=== PATIENT | female | born 1930 | race Two or more races ===

== ENCOUNTER 2017-09-19 18:44 | Inpatient (IN) | payer OTHER, MEDICAID ==
[~2017-09-19] VITALS: Ht 152.4 cm; Wt 52.8 kg
[2017-09-19 20:55] LABS: Basophils # (auto) 0.2 uL; Basophils % (auto) 1.1 % (0.0-2.0); Eosinophils # (auto) 0.2 uL; Eosinophils % (auto) 1.3 % (0.0-7.0); Hematocrit 36.5 % (36.0-46.0); Hemoglobin 11.7 g/dL (12.2-16.2); Lymphocytes # (auto) 1.2 uL; Mean Corpuscular Hemoglobin 28.1 pg (28.0-32.0); Mean Corpuscular Volume 87.8 fL (80.0-100.0); Monocytes % (auto) 6.3 % (0.0-12.0); Neutrophils % (auto) 84.3 % (37.0-80.0); Nucleated Red Blood Cells % 0.1 %; Platelet Count (auto) 369 10^3/uL (140-450); Red Blood Cells 4.16 10^6/uL (4.0-5.20); Red Cell Distribution Width 16.4 % (11.8-14.3); White Blood Cell 16.6 10^3/uL (4.4-10.8)
[2017-09-19 21:10] LABS: INR 1.04 (0.9-1.15); Partial Thromboplastin Time 24.3 sec (22.64-33.71); Prothrombin Time 11.3 sec (9.37-12.3)
[2017-09-19 21:11] LABS: Albumin 3.7 g/dL (3.4-5.0); BUN/Creatinine Ratio 30.5; Calcium 8.4 mg/dL (8.5-10.1)
[2017-09-19 21:12] LABS: Magnesium 1.9 mg/dL (1.6-2.6)
[2017-09-19 21:14] LABS: Bilirubin, Total 0.6 mg/dL (0.2-1.0); Total Protein 7.9 g/dL (6.4-8.2)
[2017-09-19 21:22] LABS: Urine Bacteria FEW /hpf (None Seen); Urine Blood Negative /uL (Negative); Urine Hyaline Cast FEW /lpf (0 - 2); Urine Specific Gravity 1.011 (1.001-1.035); Urine WBC 2 /hpf (0 - 5)
[2017-09-19] MEDS ORDERED: ONDANSETRON HCL 4 MG/2 ML VIAL IV ONE (21:30)
[2017-09-19] MEDS ORDERED: MORPHINE SULFATE 4 MG/ML SYR/VIAL IV ONE (21:30)
[2017-09-19] MEDS ORDERED: cloNIDine HCL 0.1 MG TAB PO ONE (21:30)
[2017-09-19] MEDS ORDERED: SODIUM CHLORIDE 0.9% 1,000 ML IV ONE (21:30)
[2017-09-19] MEDS ORDERED: cloNIDine HCL 0.1 MG TAB PO PRN (21:45)
[2017-09-19] MEDS ORDERED: DEXTROSE (50%) 50ML SYRG IV PRN (21:45)
[2017-09-19] MEDS ORDERED: ONDANSETRON HCL 4 MG/2 ML VIAL IV PRN (21:45)
[2017-09-19] MEDS ORDERED: ACETAMINOPHEN 325 MG TAB PO PRN (21:45)
[2017-09-19] MEDS ORDERED: MORPHINE SULFATE 4 MG/ML SYR/VIAL IV PRN ×2 (21:45)
[2017-09-19] MEDS ORDERED: HYDROcodone-ACET 5/325MG TAB PO PRN (21:45)
[2017-09-19] MEDS ORDERED: DOCUSATE SOD 100 MG CAP PO PRN (21:45)
[2017-09-19] MEDS ORDERED: LEVOFLOXACIN 500MG 100 ML IV ONE (21:45)
[2017-09-19] MEDS ORDERED: TEMAZEPAM 15 MG CAP PO PRN (21:45)
[2017-09-19] MEDS ORDERED: NITROGLYCERIN 0.4 MG SL TAB SL PRN (21:45)
[2017-09-19] MEDS: SODIUM CHLORIDE 0.9% 1,000 ML IV SCH (21:58)
[2017-09-19] MEDS: FAMOTIDINE 20 MG TAB PO SCH (22:10)
[2017-09-19] MEDS ORDERED: CARVEDILOL 3.125 MG TAB PO ONE (22:15)
[2017-09-19] MEDS ORDERED: ATORVASTATIN 20 MG TAB PO ONE (22:15)
[2017-09-19] MEDS ORDERED: METOPROLOL TARTRATE 1MG/1ML-5ML VIAL IV ONE (22:15)
[2017-09-19 23:00] VITALS: BP 143/75
[2017-09-19] MEDS ORDERED: MONTELUKAST SODIUM 10 MG TAB PO ONE (23:00)
[2017-09-19 23:14] VITALS: BP 143/75
[2017-09-20] VITALS (7 sets, daily range): BP systolic 82–143; BP diastolic 51–75
[2017-09-20] MEDS: InsuLIN REG 1unit/0.01ml Soln (100units/ml) SC SCH ×3 (06:00→12:00)
[2017-09-20] MEDS: ACCU-CHEK COMFORT CURVE STRIP VI SCH ×3 (06:24→12:52)
[2017-09-20 07:23] LABS: Basophils # (auto) 0.1 uL; Basophils % (auto) 0.9 % (0.0-2.0); Eosinophils # (auto) 0.6 uL; Eosinophils % (auto) 5.6 % (0.0-7.0); Hematocrit 29.1 % (36.0-46.0); Hemoglobin 9.2 g/dL (12.2-16.2); Lymphocytes # (auto) 1.3 uL; Mean Corpuscular Hgb Conc. 31.5 g/dL (32.0-36.0); Mean Corpuscular Volume 88.9 fL (80.0-100.0); Monocytes % (auto) 9.5 % (0.0-12.0); Neutrophils # (auto) 7.7 uL; Nucleated Red Blood Cells % 0.1 %; Platelet Count (auto) 273 10^3/uL (140-450); Red Blood Cells 3.28 10^6/uL (4.0-5.20); Red Cell Distribution Width 15.8 % (11.8-14.3); White Blood Cell 10.6 10^3/uL (4.4-10.8)
[2017-09-20 07:38] LABS: Albumin 2.7 g/dL (3.4-5.0); BUN/Creatinine Ratio 25.2; Calcium 7.7 mg/dL (8.5-10.1)
[2017-09-20 07:51] LABS: Bilirubin, Total 0.5 mg/dL (0.2-1.0); Total Protein 5.9 g/dL (6.4-8.2)
[2017-09-20] MEDS: FAMOTIDINE 20 MG TAB PO SCH (09:28)
[2017-09-20] MEDS ORDERED: RALO60TA13 PO (09:56)
[2017-09-20] MEDS ORDERED: METF-370 PO (09:56)
[2017-09-20] MEDS ORDERED: MONT5CHW17 PO (09:56)
[2017-09-20] MEDS ORDERED: CARV6.2551 PO (09:56)
[2017-09-20] MEDS ORDERED: ASPI81TA27 PO (09:56)
[2017-09-20] MEDS ORDERED: NAP500T PO (09:56)
[2017-09-20] MEDS ORDERED: LEVOFLOXACIN 250MG 50 ML IV SCH (10:00)
[2017-09-20] MEDS ORDERED: CARVEDILOL 3.125 MG TAB PO SCH (10:00)
[2017-09-20] MEDS ORDERED: ENOXAPARIN SOD 30 MG/0.3 ML SYRINGE SC SCH (10:00)
[2017-09-20] MEDS: SODIUM CHLORIDE 0.9% 1,000 ML IV SCH (16:48)
[2017-09-20] MEDS ORDERED: ATORVASTATIN 20 MG TAB PO SCH (22:00)
[2017-09-20] MEDS ORDERED: MONTELUKAST SODIUM 10 MG TAB PO SCH (22:00)
== END 2017-09-20 18:10 | disposition short-term general hospital (02) | DRG 535 ==
LOC: ER 18:44 → TELE-CENTR 18:45
PROVIDERS: ADMIT Nurse Practitioner; ATTEND Internal Medicine Geriatric Medicine
DX: S72.012A Unspecified intracapsular fracture of left femur, initial encounter for closed fracture (principal); N17.0 Acute kidney failure with tubular necrosis; E11.22 Type 2 diabetes mellitus with diabetic chronic kidney disease; R65.10 Systemic inflammatory response syndrome (SIRS) of non-infectious origin without acute organ dysfunction; E86.0 Dehydration; E11.65 Type 2 diabetes mellitus with hyperglycemia; N18.2 Chronic kidney disease, stage 2 (mild); I12.9 Hypertensive chronic kidney disease with stage 1 through stage 4 chronic kidney disease, or unspecified chronic kidney disease; D72.829 Elevated white blood cell count, unspecified; E78.5 Hyperlipidemia, unspecified; J44.9 Chronic obstructive pulmonary disease, unspecified; F41.9 Anxiety disorder, unspecified; K59.00 Constipation, unspecified; W18.39XA Other fall on same level, initial encounter; Z82.49 Family history of ischemic heart disease and other diseases of the circulatory system; Z90.49 Acquired absence of other specified parts of digestive tract; Z88.0 Allergy status to penicillin; Z79.82 Long term (current) use of aspirin; Z79.899 Other long term (current) drug therapy; Y93.89 Activity, other specified; Y92.89 Other specified places as the place of occurrence of the external cause; Y99.8 Other external cause status
CPT/HCPCS: 36415; 51702; 71045; 74176; 80053; 81001; 82962; 83735; 83880; 84443; 84484; 85025; 85379; 85610; 85730; 93005; 96361; 96365; 96375; J1815; J1956; J2405